=== PATIENT | male | born 1995 | race Asian ===

== ENCOUNTER 2019-07-27 18:22 | Emergency (ER) | payer OTHER ==
[~2019-07-27] VITALS: Ht 190.5 cm; Wt 90.7 kg
[2019-07-27 18:38] VITALS: BP 124/83
[2019-07-27] MEDS ORDERED: BUSP5TAB PO (18:43)
[2019-07-27] MEDS ORDERED: VENL37.56 PO (18:43)
--- NOTE | 2019-07-27 18:43 | PHYS DOC ---
Past Medical History Past Medical History: Anxiety, Depression Adult General Chief Complaint Chief Complaint: MEDICATION REFILL HPI HPI Patient is a 23 year old male patient with history of anxiety and depression who presents to the ED today for medication refills for Effexor and Buspar he takes them for anxiety and depression. I had received a phone call from Dr. Osborn stating this patient had called him stating his father is a respiratory therapist in this hospital and his father had given him the phone number to call Dr. Osborn and ask for his medication refills, Dr. Osborn sent the patient to urgent care because he has never seen the patient before. Patient went to urgent care and they refused to give him refills. Patient called Dr. Osborn again, he requested patient come to the ED. I spoke with Dr. Osborn and called patient and requested him to come to the ED because we cannot give him a refill without creating a chart. Patient states he has any insurance and does not have a PCP. Review of Systems Review of Systems Constitutional: Denies fever or chills [] Musculoskeletal: Denies back pain or joint pain [] Integument: Denies rash or skin lesions [] Neurologic: Denies headache, focal weakness or sensory changes [] pysch: Requests for Effexor and BuSpar refills All other systems were reviewed and found to be within normal limits, except as documented in this note. Physical Exam Physical Exam Constitutional: Well developed, well nourished, no acute distress, non-toxic appearance. [] Skin: Warm, dry, no erythema, no rash. [] Back: No tenderness, no CVA tenderness. [] Extremities: No tenderness, no cyanosis, no clubbing, ROM intact, no edema. [] Neurologic: Alert and oriented X 3, normal motor function, normal sensory function, no focal deficits noted. [] Psychologic: Affect normal, judgement normal, mood normal. [] EKG EKG [] Radiology/Procedures Radiology/Procedures [] Course & Med Decision Making Course & Med Decision Making Pertinent Labs and Imaging studies reviewed. (See chart for details) This is a 23-year-old male patient presenting to the ED today for medication refills for BuSpar and Effexor. Patient takes for anxiety depression. He has no PCP. Provided a doctor's list for follow-up. History of present illness for further information. Dragon Disclaimer Dragon Disclaimer This electronic medical record was generated, in whole or in part, using a voice recognition dictation system. Departure Departure Impression: Primary Impression: Medication refill Disposition: 01 HOME, SELF-CARE Condition: STABLE Patient Instructions: Medication Refill, Emergency Department Additional Instructions: We gave you a short supply of the medications you needed. Please establish care with one of the primary care doctors from the list provided and follow-up for more medications and care. Scripts Venlafaxine Hcl (VENLAFAXINE HCL) 37.5 Mg Tablet 37.5 MG PO DAILY, #30 TAB Prov: COLLETTE PUTNAM APRN 07/27/19 Buspirone Hcl (BUSPIRONE HCL) 5 Mg Tablet 0.5 TAB PO BID, #15 TAB 0 Refills Prov: COLLETTE PUTNAM APRN 07/27/19 COLLETTE PUTNAM APRN Jul 27, 2019 18:43
== END 2019-07-27 18:58 | disposition home or self-care (01) ==
LOC: ER 18:22
DX: F41.9 Anxiety disorder, unspecified (principal); F32.9 Major depressive disorder, single episode, unspecified; Z76.0 Encounter for issue of repeat prescription
CPT/HCPCS: 99283

== ENCOUNTER 2019-08-31 20:32 | Emergency (ER) | payer OTHER ==
[~2019-08-31] VITALS: Ht 190.5 cm; Wt 90.7 kg
[~2019-08-31 20:32] MED LIST: BUSP5TAB PO; VENL37.56 PO
[2019-08-31 20:57] VITALS: BP 146/85
[2019-08-31] MEDS ORDERED: VENL37.56 PO (21:30)
[2019-08-31] MEDS ORDERED: BUSP5TAB PO (21:30)
--- NOTE | 2019-08-31 21:30 | PHYS DOC ---
Past Medical History Past Medical History: Anxiety, Depression (DILLON BAUTISTA APRN) Past Surgical History: Other Additional Past Surgical Histo: RIGHT THUMB (DILLON BAUTISTA APRN) Alcohol Use: Occasionally Drug Use: None (DILLON BAUTISTA APRN) Attending Signature I have participated in the care of this patient and I have reviewed and agree with all pertinent clinical information above including history, exam, and recommendations. (KASSIE AVILA MD) Adult General Chief Complaint Chief Complaint: MEDICATION REFILL HPI HPI Patient is a 23 year old male patient with history of anxiety and depression who presents to the ED today for medication refills for Effexor and BuSpar as he takes them for anxiety and depression. The patient received a refill from his ER visit May 26. He also received a list of primary care doctors. The patient did make an appointment with Dr. Casillas for September 20. He has run out of his medications as he is unable to get in to see her to that time. (DILLON BAUTISTA APRN) Review of Systems Review of Systems Constitutional: Denies fever or chills [] Eyes: Denies change in visual acuity, redness, or eye pain [] HENT: Denies nasal congestion or sore throat [] Respiratory: Denies cough or shortness of breath [] Cardiovascular: No additional information not addressed in HPI [] GI: Denies abdominal pain, nausea, vomiting, bloody stools or diarrhea [] : Denies dysuria or hematuria [] Musculoskeletal: Denies back pain or joint pain [] Integument: Denies rash or skin lesions [] Neurologic: Denies headache, focal weakness or sensory changes [] Endocrine: Denies polyuria or polydipsia [] Complete systems were reviewed and found to be within normal limits, except as documented in this note. (DILLON BAUTISTA APRN) Allergies Allergies Allergies Coded Allergies Type Severity Reaction Last Updated Verified No Known Drug Allergies 07/27/19 No (KASSIE AVILA MD) Physical Exam Physical Exam Constitutional: Well developed, well nourished, no acute distress, non-toxic appearance. [] HENT: Normocephalic, atraumatic, bilateral external ears normal, oropharynx moist, no oral exudates, nose normal. [] Eyes: PERRLA, EOMI, conjunctiva normal, no discharge. [] Neck: Normal range of motion, no tenderness, supple, no stridor. [] Cardiovascular:Heart rate regular rhythm, no murmur [] Lungs & Thorax: Bilateral breath sounds clear to auscultation [] Abdomen: Bowel sounds normal, soft, no tenderness, no masses, no pulsatile masses. [] Skin: Warm, dry, no erythema, no rash. [] Back: No tenderness, no CVA tenderness. [] Extremities: No tenderness, no cyanosis, no clubbing, ROM intact, no edema. [] Neurologic: Alert and oriented X 3, normal motor function, normal sensory function, no focal deficits noted. [] Psychologic: Affect normal, judgement normal, mood normal. [] (DILLON BAUTISTA APRN) Current Patient Data Vital Signs Vital Signs Date Time Temp Pulse Resp B/P (MAP) Pulse Ox O2 Delivery O2 Flow Rate FiO2 08/31/19 20:57 98.6 88 16 146/85 (105) 96 Room Air 98.6 (KASSIE AVILA MD) EKG EKG [] (DILLON BAUTISTA APRN) Radiology/Procedures Radiology/Procedures [] (DILLON BAUTISTA APRN) Course & Med Decision Making Course & Med Decision Making Pertinent Labs and Imaging studies reviewed. (See chart for details) Will refill meds for 1 month to get through to appointment with PCP. (DILLON BAUTISTA APRN) Dragon Disclaimer Dragon Disclaimer This electronic medical record was generated, in whole or in part, using a voice recognition dictation system. (DILLON BAUTISTA APRN) Departure Departure Impression: Primary Impression: Medication refill Disposition: 01 HOME, SELF-CARE Condition: STABLE Referrals: NO PCP (PCP) Patient Instructions: Medication Refill, Emergency Department Additional Instructions: Thank you for visiting [facility]. We appreciate you trusting us with your care. If any additional problems come up don't hesitate to return to visit us. Please follow up with your primary care provider so they can plan add itional care if needed and know about the problem that you had. If symptoms worsen come back to the Emergency Department. Any concerning symptoms that start such as chest pain, shortness of air, weakness or numbness on one side of the body, running high fevers or any other concerning symptoms return to the ER. Please follow up with Dr. Casillas on September 20. Scripts Venlafaxine Hcl (VENLAFAXINE HCL) 37.5 Mg Tablet 37.5 MG PO DAILY, #30 TAB Prov: DILLON BAUTISTA APRN 08/31/19 Buspirone Hcl (BUSPIRONE HCL) 5 Mg Tablet 0.5 TAB PO BID, #15 TAB 0 Refills Prov: DILLON BAUTISTA APRN 08/31/19 DILLON BAUTISTA APRN Aug 31, 2019 21:30 KASSIE AVILA MD Sep 01, 2019 02:41
== END 2019-08-31 21:37 | disposition home or self-care (01) ==
LOC: ER 20:32
DX: F41.9 Anxiety disorder, unspecified (principal); F32.9 Major depressive disorder, single episode, unspecified; Z76.0 Encounter for issue of repeat prescription
CPT/HCPCS: 99283